=== PATIENT | female | born 1995 | race Caucasian/White ===

== ENCOUNTER 2018-09-03 13:29 | Emergency (ER) | payer OTHER ==
[~2018-09-03] VITALS: Ht 142.2 cm; Wt 64.9 kg
[~2018-09-03 13:29] MED LIST: ADVIL100 MG; ANTICONCEPTIVAS; BENTYL PO; ZANTAC 2525 MG PO; [UNRECOGNIZED DRUG - CODE]
== END 2018-09-03 17:35 | disposition home or self-care (01) ==
LOC: ER 13:29
DX: M54.5 Low back pain (principal)